=== PATIENT | female | born 1985 | race Caucasian/White ===

== ENCOUNTER → 2020-05-21 | Outpatient (CLI) | payer OTHER ==
[2020-05-22 09:13] LABS: HIV SCREEN 4TH GENERATION WRFX Non Reactive (Non Reactive)
[2020-05-22 15:09] LABS: IMMUNOGLOBULIN G, QN, SERUM 605 mg/dL (586-1602)
[2020-05-24 15:11] LABS: ANGIOTENSIN-CONVERTING ENZYME 45 U/L (14-82)
== END ==
LOC: LAB 11:40
PROVIDERS: Internal Medicine
DX: D89.89 Other specified disorders involving the immune mechanism, not elsewhere classified (principal); M25.50 Pain in unspecified joint; R76.8 Other specified abnormal immunological findings in serum; R53.83 Other fatigue; M35.00 Sjogren syndrome, unspecified; M79.10 Myalgia, unspecified site; E61.1 Iron deficiency
CPT/HCPCS: 36415; 82164; 82330; 82550; 82784; 82787; 83735; 84100; 87389

== ENCOUNTER → 2020-06-23 | Outpatient (CLI) | payer OTHER | LOC: CT 11:30 | DX: J20.9 Acute bronchitis, unspecified (principal); J34.89 Other specified disorders of nose and nasal sinuses | CPT/HCPCS: 70470; Q9963 ==

== ENCOUNTER 2021-01-24 06:31 | Observation (INO) | payer OTHER ==
[~2021-01-24] VITALS: Ht 170.2 cm; Wt 59.9 kg
[2021-01-24 06:48] LABS: HEMOGLOBIN 14.3 gm/dl (12.3-15.3); RED BLOOD COUNT 4.5 M/UL (4.00-5.10); WHITE BLOOD COUNT 8.3 K/UL (4.5-11.0)
[2021-01-24 07:10] LABS: BUN/CREATININE RATIO 16 (0-10)
[2021-01-24] MEDS ORDERED: PROTONIX40 MG PO (09:25)
[2021-01-24] MEDS ORDERED: PROAIR HFA8.5 GM INH (09:26)
[2021-01-24] MEDS ORDERED: BUPRENORPHIN-N1 EACH SL (09:30)
[2021-01-25] MEDS ORDERED: HYDROCODON-ACE1 EAC4 PO (09:20)
--- NOTE | 2021-01-25 11:20 | NUR ---
PATIENT HAS SMALL AMOUNT OF BLOOD AT NAVEL INCISION. PLACED 4X4 AND TAPE OVER INCISION PER PATIENT REQUEST. SURGEON WAS IN THIS MORNING SAW PATIENT AND IS AWARE OF THE BLEEDING. SURGEON MOVED AHEAD WITH PATIENT DISCHARGE. WILL CONTINUE TO MONITOR.
== END 2021-01-25 12:48 | disposition home or self-care (01) ==
LOC: ER1 06:31 → CDU 08:19 → M/S 16:14
PROVIDERS: Emergency Medicine; ADMIT Surgery
DX: K41.30 Unilateral femoral hernia, with obstruction, without gangrene, not specified as recurrent (principal); J44.9 Chronic obstructive pulmonary disease, unspecified; I10 Essential (primary) hypertension; K21.9 Gastro-esophageal reflux disease without esophagitis; F17.210 Nicotine dependence, cigarettes, uncomplicated; Z20.822 Contact with and (suspected) exposure to COVID-19
CPT/HCPCS: 80053; 81001; 83605; 83690; 84703; 85025; 96374; 96375; 96376; 99285; C1781; G0378; J1100; J1170; J2001; J2270; J2405; J2550; J2704; J2710; J3010; J7120; Q9967; U0002

== ENCOUNTER 2021-08-30 21:02 | Observation (INO) | payer OTHER ==
[~2021-08-30] VITALS: Ht 200.7 cm; Wt 54.4 kg
[~2021-08-30 21:02] MED LIST: BUPRENORPHIN-N1 EACH SL; HYDROCODON-ACE1 EAC4 PO; PROAIR HFA8.5 GM INH; PROTONIX40 MG PO
[2021-08-30 22:17] LABS: HEMOGLOBIN 14.6 gm/dl (12.3-15.3); RED BLOOD COUNT 4.66 M/UL (4.00-5.10)
[2021-08-30 22:47] LABS: BUN/CREATININE RATIO 18 (0-10)
[2021-08-31 04:35] LABS: HEMOGLOBIN 14.3 gm/dl (12.3-15.3); RED BLOOD COUNT 4.62 M/UL (4.00-5.10); WHITE BLOOD COUNT 9.4 K/UL (4.5-11.0)
[2021-08-31 05:08] LABS: BUN/CREATININE RATIO 16 (0-10)
[2021-08-31] MEDS ORDERED: ONDANSETRON ODT4 MG PO (17:00)
[2021-08-31] MEDS ORDERED: SUMATRIPTAN SU100 MG PO (17:01)
[2021-08-31] MEDS ORDERED: PROAIR HFA8.5 GM INH (17:01)
[2021-08-31] MEDS ORDERED: BREZTRI AEROS10.7 GM INH (17:02)
[2021-08-31] MEDS ORDERED: VISTARIL50 MG PO (17:04)
[2021-08-31] MEDS ORDERED: PHENYTOIN SODI100 MG PO (17:05)
[2021-08-31] MEDS ORDERED: ROPINIROLE HCL2 MG PO (17:06)
[2021-08-31] MEDS ORDERED: PROTONIX40 MG PO (17:07)
[2021-09-01] MEDS ORDERED: KEPPRA500 MG PO (18:50)
[2021-09-01] MEDS ORDERED: MACROBID 100 M100 MG PO (18:50)
== END 2021-09-02 12:15 | disposition home or self-care (01) ==
LOC: ER1 21:02 → CDU 23:12 → M/S 23:12 → CDU 23:12 → M/S 08-31 15:07
PROVIDERS: Physician Assistant; ADMIT Surgery
DX: K56.609 Unspecified intestinal obstruction, unspecified as to partial versus complete obstruction (principal); G40.909 Epilepsy, unspecified, not intractable, without status epilepticus; F17.210 Nicotine dependence, cigarettes, uncomplicated; Z79.899 Other long term (current) drug therapy; Z88.1 Allergy status to other antibiotic agents
CPT/HCPCS: 74018; 80048; 80053; 81001; 82150; 83690; 85025; 96374; 96375; 99285; G0378; J1050; J1953; J2270; J2405; J3480; Q9967